=== PATIENT | male | born 2000 | race Caucasian/White ===

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

== ENCOUNTER 2020-07-21 11:10 | Emergency (ER) | payer OTHER ==
[2020-07-21 11:22] VITALS: BP 147/70; PULSE 58; TEMP 98.3; BMI 29.2
--- NOTE | 2020-07-21 11:59 | PDOC ---
History of Present Illness - General Chief Complaint: Pain Stated Complaint: HURT LEG Time Seen by Provider: 07/21/20 11:24 History Source: Patient Exam Limitations: Clinical Condition - History of Present Illness Initial Comments: 07/21/20 12:27 Patient with past medical history of right meniscus repair of right knee a year and half ago presented with complaint of a one-week history of persistent right knee pain and swelling to right knee status post playing soccer. Patient denies any trauma or recent injury to knee. Patient reported increased pain to right knee with ambulation. Patient has not been taking anything for pain. Patient reported knee pain feels like the pain he had when he had a meniscus tear that needed repair. Denies any other symptoms Is this a multiple visit Asthma Patient?: No Timing/Duration: 1 week Past History - Medical History Allergies/Adverse Reactions: Allergies Allergy/AdvReac Type Severity Reaction Status Date / Time No Known Allergies Allergy Verified 07/21/20 11:20 Home Medications: Ambulatory Orders NK [No Known Home Medication] 07/27/18 Anemia: No Asthma: No Cancer: No Cardiac Disorders: No CVA: No COPD: No CHF: No DVT: No Dementia: No Diabetes: No GI Disorders: No Disorders: No HTN: No Hypercholesterolemia: No Liver Disease: No Seizures: No Thyroid Disease: No - Immunization History Immunization Up to Date: Yes - Psycho-Social/Smoking History Smoking History: Never smoked Have you smoked in the past 12 months: No - Substance Abuse Hx (Audit-C & DAST Scrn) How often the patient has a drink containing alcohol: Never Score: In Men: 4 or > Positive; In Women: 3 or > Positive: 0 Screen Result (Pos requires Nsg. Audit-10AR): Negative In the last yr the pt used illegal drug/Rx for NonMed reason: No Score: Yes response is considered Positive: 0 Screen Result (Positive result requires Nsg. DAST-10): Negative Review of Systems - Review of Systems Able to Perform ROS?: Yes Is the patient limited Lao proficient: No Constitutional: No: Chills, Fever, Malaise HEENTM: No: Symptoms Reported, See HPI, Eye Pain, Blurred Vision, Tearing, Recent change in vision, Double Vision, Cataracts, Ear Pain, Ocular Prothesis, Ear Discharge, Nose Pain, Nose Congestion, Tinnitus, Nose Bleeding, Hearing Loss, Throat Pain, Throat Swelling, Mouth Pain, Dental Problems, Difficulty Swallowing, Mouth Swelling, Other Respiratory: No: Symptoms reported, See HPI, Cough, Orthopnea, Shortness of Breath, SOB with Exertion, SOB at Rest, Stridor, Wheezing, Productive cough, Hemoptysis, Other Cardiac (ROS): No: Symptoms Reported Musculoskeletal: Yes: Symptoms Reported, See HPI, Joint Pain (right knee pain), Muscle Pain (right knee pain) Integumentary: No: Symptoms Reported Neurological: No: Paresthesia, Tingling, Weakness All Other Systems: Reviewed and Negative *Physical Exam - Vital Signs Last Vital Signs Temp Pulse Resp BP Pulse Ox 98.3 F 58 L 20 147/70 100 07/21/20 11:21 07/21/20 11:21 07/21/20 11:21 07/21/20 11:21 07/21/20 11:21 - Physical Exam 07/21/20 12:29 GENERAL: Well developed, well nourished. Awake and alert in mild acute distress. PULMONARY: No evidence of respiratory distress. MUSCULOSKELETAL : moderate tenderness over medial lateral collateral ligament with mild joint effusion with mild ballottement sign. No joint laxity. Normal valgus and varum test. No skin erythema or increased warmth SKIN: Warm and dry. Normal capillary refill. No skin erythema, increased warmth or bruising to right knee NEUROLOGICAL: Alert, awake, appropriate. No motor deficits in the lower extremities. Gait is normal without ataxia. PSYCHIATRIC: Cooperative. Good eye contact. Appropriate mood and affect. General Appearance: Yes: Nourished, Appropriately Dressed. No: Apparent Distress ED Treatment Course - RADIOLOGY Radiology Studies Ordered: Category Date Time Status KNEE 3 POS-RIGHT [RAD] Stat Radiology 07/21/20 11:27 Ordered Medical Decision Making - Medical Decision Making 07/21/20 12:28 Patient with past medical history of right meniscus repair of right knee a year and half ago presented with complaint of a one-week history of persistent right knee pain and swelling to right knee status post playing soccer. Patient denies any trauma or recent injury to knee. Patient reported increased pain to right knee with ambulation. Patient has not been taking anything for pain. Patient reported knee pain feels like the pain he had when he had a meniscus tear that needed repair. Denies any other symptoms Exam significant for moderate tenderness over medial lateral collateral ligament with mild joint effusion with mild ballottement sign. No joint laxity. Normal valgus and varum test. No skin erythema or increased warmth. Patient declined x-ray of knee. Call made to orthopedics Dr. Mckeon office and spoke to GISSEL Allan who agrees to see patient tomorrow morning at 10:00 for evaluation and possible MRI if needed. Plan discussed with patient patient agrees with plan and patient will follow-up with orthopedics office tomorrow. Patient advised to take Motrin as needed for pain and follow-up with orthopedics. Patient stable for discharge Discharge - Discharge Information Problems reviewed: Yes Clinical Impression/Diagnosis: Right knee pain Qualifiers: Chronicity: acute Qualified Code(s): M25.561 - Pain in right knee Condition: Stable Disposition: HOME - Admission No - Follow up/Referral Referrals: Jose Mckeon MD [Staff Physician] - 07/22/20 10:00 am - Patient Discharge Instructions Patient Printed Discharge Instructions: DI for Knee Effusion Additional Instructions: Follow-up with Dr. Mckeon office for evaluation and possible MRI tomorrow morning at 10 AM. You have scheduled appointment for 10 AM tomorrow with orthopedics - Post Discharge Activity
== END 2020-07-21 12:27 | disposition home or self-care (01) ==
LOC: JERFT 11:10
DX: M25.561 Pain in right knee (principal)
CPT/HCPCS: 99283-25

== ENCOUNTER 2023-10-06 18:22 | Emergency (ER) | payer OTHER ==
[2023-10-06 18:34] VITALS: BP 127/74; PULSE 71; RESP 19; TEMP 97.9; BMI 28.0
[2023-10-06] MEDS ORDERED: IBUPROFEN 600 MG TABLET (FP) PO ONE ×2 (18:58→19:04)
[2023-10-06] MEDS ORDERED: DIPHTH,PERTUSS(ACELL),TET 0.5 ML DISP.SYRIN IM ONE ×2 (19:01→19:05)
== END 2023-10-06 20:33 | disposition home or self-care (01) ==
LOC: JERFT 18:22 → JER 18:22 → JERFT 20:33
PROC: 0HQGXZZ Repair Left Hand Skin, External Approach (ICD-10-PCS; principal; 2023-10-06)
PROC: 3E0234Z Introduction of Serum, Toxoid and Vaccine into Muscle, Percutaneous Approach (ICD-10-PCS; 2023-10-06)
DX: S61.012A Laceration without foreign body of left thumb without damage to nail, initial encounter (principal); W23.1XXA Caught, crushed, jammed, or pinched between stationary objects, initial encounter
CPT/HCPCS: 12001-25; 73130-TC-LT-FY; 90471; 90715; 99283-25

== ENCOUNTER 2024-05-25 11:08 | Emergency (ER) | payer OTHER ==
[2024-05-25 11:25] VITALS: BP 119/59; PULSE 98; RESP 20; TEMP 97.6; BMI 30.2
[2024-05-25] MEDS ORDERED: ONDANSETRON *ODT* 4 MG TABLET ONE ×2 (11:55→11:57)
[2024-05-25] MEDS: ONDANSETRON *ODT* 4 MG TABLET SL ONE (12:15)
[2024-05-25] MEDS: SODIUM CHLORIDE 1,000 ML IV STA (12:16)
== END 2024-05-25 13:43 | disposition home or self-care (01) ==
LOC: JER 11:08
PROC: 3E0337Z Introduction of Electrolytic and Water Balance Substance into Peripheral Vein, Percutaneous Approach (ICD-10-PCS; principal; 2024-05-25)
DX: A08.4 Viral intestinal infection, unspecified (principal); R11.2 Nausea with vomiting, unspecified; R10.13 Epigastric pain
CPT/HCPCS: 99284-25; Q0162

== ENCOUNTER 2025-05-23 23:36 | Emergency (ER) | payer OTHER ==
[2025-05-23 23:45] VITALS: BP 115/71; PULSE 65; TEMP 98.4; BMI 27.6
[2025-05-24] MEDS ORDERED: DEXAMETHASONE SOD PHOSPHATE 10 MG/1 ML VIAL ONE
[2025-05-24] MEDS: DEXAMETHASONE LIQUID 0.5 MG/5 ML PO ONE (00:13)
[2025-05-24] MEDS ORDERED: ALBUTEROL SO4 2.5/IPRATROPIUM 0.5 INH SOL 3 ML VIAL.NEB. NEB ONE (00:19)
[2025-05-24] MEDS: ALBUTEROL SO4 2.5/IPRATROPIUM 0.5 INH SOL 3 ML VIAL.NEB. NEB ONE (00:21)
[2025-05-24 01:39] LABS: HCV DIAGNOSTIC IN-HOUSE W/RFLX NON-REACTIVE (NONREACTIVE); HIV INTERPRETATION NEGATIVE (NEGATIVE)
[2025-05-24 01:44] VITALS: RESP 17
== END 2025-05-24 01:44 | disposition home or self-care (01) ==
LOC: JER 23:36
PROC: 3E0F7GC Introduction of Other Therapeutic Substance into Respiratory Tract, Via Natural or Artificial Opening (ICD-10-PCS; principal; 2025-05-23)
DX: R06.02 Shortness of breath (principal); R09.A2 Foreign body sensation, throat
CPT/HCPCS: 36415; 70360-TC-FY; 71046-TC-FY; 86803; 87389; 99284-25